=== PATIENT | male | born 1960 | race Caucasian/White ===

== ENCOUNTER → 2020-03-19 | Day surgery (SDC) | payer BC, OTHER ==
[2020-03-16 15:37] LABS: BASOPHILS # (AUTO) 0.1 (0.0-0.1); BASOPHILS % 0.8 % (0.0-1.0); EOSINOPHILS # (AUTO) 0.3 (0.0-0.4); EOSINOPHILS % 3.4 % (0.0-6.0); HEMATOCRIT 46.3 % (38.2-49.6); HEMOGLOBIN 15.1 g/dL (14.0-18.0); LYMPHOCYTES # (AUTO) 2.6 (1.0-3.2); LYMPHOCYTES % 28.4 % (18.0-39.1); MEAN CORPUSCULAR HGB CONC 32.6 g/dL (31-35); MEAN CORPUSCULAR VOLUME 88.9 fL (81-99); MONOCYTES # (AUTO) 0.8 (0.2-0.8); MONOCYTES % 8.7 % (4.4-11.3); NEUTROPHILS # (AUTO) 5.4 (2.1-6.9); NEUTROPHILS % 58.4 % (38.7-80.0); PLATELET COUNT 310 x10e3/uL (140-360); RED BLOOD COUNT 5.21 x10e6/uL (4.3-5.7); RED CELL DISTRIBUTION WIDTH 13.3 % (11.7-14.4)
[2020-03-16 15:54] LABS: BLOOD UREA NITROGEN 19 mg/dL (7-26); BUN/CREATININE RATIO 18 (6-25); CALCIUM 9.5 mg/dL (8.4-10.2); CARBON DIOXIDE 23 mmol/L (22-29); CHLORIDE 109 mmol/L (98-107); CREATININE, SERUM 1.06 mg/dL (0.72-1.25); EST GLOMERULAR FILTRATION RATE > 60 ML/MIN (60-); GLUCOSE 103 mg/dL (74-118); SODIUM 141 mmol/L (136-145)
--- NOTE | 2020-03-16 16:17 | Diagnostic Imaging Report ---
EXAMINATION: CHEST 2 VIEWS, ABDOMEN-1VIEW (KUB) INDICATION: Pre-operative COMPARISON: None FINDINGS: LINES/TUBES:None LUNGS:The lungs are well-inflated. No focal consolidation or pulmonary edema. Bilateral lower lung subcentimeter calcified granulomas. PLEURA:No pleural effusion or pneumothorax. MEDIASTINUM:The cardiomediastinal silhouette appears normal in size and shape. BONES/SOFT TISSUES:No acute osseous injury. Degenerative changes of the visualized spine. ABDOMEN:Left upper pole renal calculi measure up to 10 mm. Left lower pole renal calculi measure up to 6 mm. Right lower pole renal calculus measures up to 5 mm. Nonobstructive bowel gas pattern. No free air. IMPRESSION: No focal pneumonia or pulmonary edema. Bilateral renal calculi as above measure up to 10 mm on the left and 5 mm on the right. Signed by: Nel Modi MD on 03/16/2020 4:13 PM
[~2020-03-19] MED LIST: ACETAMINOPHEN/CODEINE 300MG - 30MG TAB ONE; ALLEGRA ALLERGY60 MG; AZELASTINE HCL6 ML; CEFTRIAXONE SOD 1 GM/NS 50 ML 50 ML IV ONE; DEXAMETHASONE SOD PHOS INJ 4 MG/ML VIAL ONE; EPHEDRINE SULFATE INJ 50 MG/ML VIAL ONE; FENOFIBRATE145 MG; FENTANYL CITRATE/PF 100MCG/2 ML INJ ONE; GLYCOPYRROLATE INJ 0.2 MG/ML VIAL ONE; HYDROMORPHONE 1MG/1ML INJ ONE; IOPAMIDOL 300MG/ML 50ML INFUS..BTL IV ONE; LIDOCAINE HCL 2% LOCAL INJ 5 ML SDV VIAL INJ ONE; METFORMIN HCL500 MG PO; METOPROLOL TART25 MG PO; MIDAZOLAM HCL 2 MG/2 ML VIAL ONE; MONTELUKAST SOD10 MG PO; MORPHINE SULFATE INJ 4 MG/ML INJ 1ML ONE; NEOSTIGMINE 1 MG/ML 10ML VIAL ONE; ONDANSETRON HCL INJ 2MG/ML 2ML 2 MG/ML VIAL ONE; PRAVACHOL20 MG PO; PROPOFOL IV EMULSION 10 MG/ML 20 ML VIAL ONE; PROTONIX20 MG PO; ROCURONIUM BROMIDE 10 MG/ML 5ML VIAL IV ONE; SEVOFLURANE INHAL SOLN 250 ML PEN BTL ONE; STEGLATRO5 MG
[2020-03-19 10:55] VITALS: BP 146/83
--- NOTE | 2020-03-19 13:26 | Operative Report ---
DATE OF PROCEDURE: 03/19/2020 SURGEON: lAon Rader MD PREOPERATIVE DIAGNOSIS: Left kidney stones. POSTOPERATIVE DIAGNOSIS: Left kidney stones. OPERATIVE PROCEDURE PERFORMED: 1. Cystoscopy. 2. Left retrograde pyelogram. 3. Left ureteroscopy with laser lithotripsy. 4. Placement of a left ureteral stent. ANESTHESIA: General anesthesia. ESTIMATED BLOOD LOSS: Minimal. INDICATIONS: Mr. Timothy Haely is a 59-year-old gentleman with intermittent left flank pain, who was found to have stones in his left kidney. He continues with his pain and and now presents for definitive surgical management of his problem. PROCEDURE IN DETAIL: The patient was brought to the operating room and placed in supine position. After initiation of general anesthesia, he was placed in dorsal lithotomy position and prepped and draped in usual sterile fashion. Cystourethroscopy was performed using 22-Prydeinig cystoscope. He had some widely patent urethral stricture disease in his anterior and posterior urethra. His prostate revealed mild elevation of the median bar. His bladder was entered without difficulty. Upon entrance into his bladder, his ureteral orifices were noted to be bladder neck producing clear efflux bilaterally. There were no mucosal lesions identified. Using a 5-Prydeinig open-ended catheter, left retrograde pyelogram was performed. This revealed a normal ureter in the lower pole and the middle pole calyces were stones. These were not thought to be obstructive, but were certainly in a place that had the potential to cause discomfort. Under fluoroscopic guidance, a wire was placed up into the left ureteral pelvis and a long ureteral access sheath was placed. Flexible ureteroscopy was then performed. The visualized portion of the proximal ureter was normal. The renal pelvis was also normal. First, middle pole calyx was entered and a stone was found. A laser was used to break up into multiple small fragments. The larger fragments were collected via the basket and sent to the pathology for microscopic analysis. There was none portion that was completely adhered to the calyceal blankenship, midpole calyx and the largest was with the laser. The base of the stone was left in situ and it was nonmobile. The left lower pole was then entered with a scope and a large stone there was brought into the basket and moved into the pelvis and then subsequent proximal ureter. The laser fiber was used to break up the stone in this location. stone fragments to pathology for microscopic analysis. There were no large potential obstructive fragments seen in the . Also of note, two 200 mm fibers were used to break up the middle pole calyceal and lower pole calyceal stone and both of these were noted to break during the procedure. There was no evidence of harm to the patient or to myself. A 365 laser was subsequently used to break up the stone once it was in renal pelvis. Once the stone fragments were removed, the renal access sheath was removed and a 6-Prydeinig 30 cm stent was placed such that one coil was in the renal pelvis and the subsequent coil was in the bladder for removal. The patient was returned to supine position and anesthesia was reversed. He was extubated, taken to the postanesthesia care unit in good condition. Of note, the needle and instrument count were correct at the conclusion of the case. MD TERRI Winslow/MANNY /[id number]
== END | disposition home or self-care (01) ==
LOC: OR 05:29
PROVIDERS: ATTEND Urology
DX: N20.0 Calculus of kidney (principal); N34.2 Other urethritis; N35.914 Unspecified anterior urethral stricture, male; I10 Essential (primary) hypertension; E11.9 Type 2 diabetes mellitus without complications; K21.9 Gastro-esophageal reflux disease without esophagitis; Z91.041 Radiographic dye allergy status; Z01.810 Encounter for preprocedural cardiovascular examination; Z01.812 Encounter for preprocedural laboratory examination; Z01.818 Encounter for other preprocedural examination; Z11.59 Encounter for screening for other viral diseases; Z79.84 Long term (current) use of oral hypoglycemic drugs
CPT/HCPCS: 36415 ×2; 52356; 71046; 74018; 74420; 80048; 82948; 85025; 88300; 93005; C1758; C1766; C1769; C2617; J0696; J1100; J1170; J2001; J2250; J2270; J2405; J2704; J2710; J3010; Q9967; U0002